=== PATIENT | female | born 1990 | race Two or more races ===

== ENCOUNTER 2024-03-08 21:24 | Inpatient (IN) | payer SELFPAY ==
[2024-03-08 22:31] LABS: Bilirubin Negative (Negative); Blood, Urine 3+ (Negative); CAUTI Indications for Culture Dysuria,urgency,freq; Clarity Clear (Clear); Glucose, Urine (Dipstick) Greater than 1000 mg/dL (Negative); Ketone, Urine 100 mg/dL (Negative); Leukocyte 75 Leu/uL (Negative); Nitrite Negative (Negative); Protein, Urine (Dipstick) Negative (Neg-Trace); Specific Gravity, Urine 1.035 (1.002-1.036); Squamous Epithelial 0-3 HPF (0-3); Urobilinogen Normal mg/dL (Less than 2); pH, Urine 5.5 (5.0-9.0)
[2024-03-08 22:35] LABS: #Basophils 0.05 10x3/uL (0.0-0.2); #Eosinophils Less than 0.03 10x3/uL (0.0-0.7); %Basophils 0.3 % (0.0-1.0); %Eosinophils 0.1 % (0.0-10.0); %Lymphocytes 4.5 % (21.0-51.0); %Neutrophils 92.5 % (42.0-75.0); Actual Bicarbonate (HCO3v) 20.4 mEq/L (22-28); Base Excess -5.8 mEq/L (-2.0 to +3.0); Chloride (VBG) 100 mmol/L (98-106); Hematocrit 40.2 % (36.0-47.0); Hematocrit-VBG 42 % (36.0-47.0); Hemoglobin 13.7 g/dL (12.0-16.0); Hemoglobin (Hb) 14.3 g/dL (11.7-15.5); Mean Corpuscular HGB CONC 34.1 g/dL (32.0-36.0); Mean Corpuscular Hemoglobin 26.4 pg (27.0-31.0); Mean Corpuscular Volume 77.5 fL (78.0-98.0); Mean Platelet Volume 8.9 fL (7.4-10.4); Platelet Count 390 10x3/uL (130-400); Potassium (VBG) 4.53 mmol/L (3.70-5.30); Red Blood Cell (RBC) Count 5.19 mill/uL (4.20-5.40); Sodium 139 mmol/L (133-146); pH (venous) 7.297 (7.32-7.43)
[2024-03-08] MEDS ORDERED: Promethazine HCl 25 MG/ML VIAL ONE (22:38)
[2024-03-08 22:43] LABS: Bacteria/HPF 1+ HPF (None Seen); RBC/HPF 21-50 HPF (0-3)
[2024-03-08] MEDS ORDERED: Ketorolac Tromethamine 30 MG (1 mL) VIAL ONE (22:43)
[2024-03-08 22:46] LABS: Urine Culture Reflex Yes Yes
[2024-03-08] MEDS ORDERED: Droperidol 5 MG/2 ML VIAL ONE (22:52)
[2024-03-08 22:57] LABS: ALT (SGPT) 25 U/L (8-55); AST (SGOT) 16 U/L (5-34); Albumin 4.2 g/dL (3.5-5.0); Alkaline Phosphatase 94 U/L (40-110); Anion Gap 20 mmol/L (10-20); BUN (Urea Nitrogen) 21 mg/dL (7.0-18.7); Bilirubin, Total 1.1 mg/dL (0.2-1.2); Calc. Creatinine Clearance 0 mL/min (70-130); Calcium 9.8 mg/dL (7.8-10.44); Carbon Dioxide 19 mmol/L (22-29); Chloride 104 mmol/L (98-107); Estimated GFR 76; Globulin 3.5 g/dL (2.4-3.5); Glucose 481 mg/dL (70-105); Lipase 9 U/L (8-78); Magnesium 1.9 mg/dL (1.6-2.6); Potassium 4.6 mmol/L (3.5-5.1); Protein, Total 7.7 g/dL (6.0-8.3); Sodium 138 mmol/L (136-145)
[2024-03-08] MEDS ORDERED: Sodium Chloride 0.9% 100 ML ONE (23:03)
[2024-03-08] MEDS ORDERED: cefTRIAXone (ROCEPHIN) 1 GM VIAL ONE (23:03)
[2024-03-08] MEDS ORDERED: INSULIN REGULAR IN 0.9 % NACL 100 ML ONE (23:29)
[2024-03-08] MEDS ORDERED: Insulin Regular, Human 100 UNIT/ML 10 ML VIAL ONE (23:34)
[2024-03-08] MEDS ORDERED: hydrOXYzine 25 MG TAB ONE (23:34)
[2024-03-08] MEDS ORDERED: NS 0.9% w/ 20 MEQ KCL 1,000 ML ONE (23:44)
[2024-03-09] MEDS ORDERED: Dextrose 50% Abboject 50 ML SYRINGE SLOW IVP PRN (00:05)
[2024-03-09] MEDS ORDERED: Sodium Chloride 0.9% 1,000 ML IV PRN ×4 (00:05)
[2024-03-09] MEDS ORDERED: Ondansetron PF 4 MG/2 ML Vial IVP PRN (00:05)
[2024-03-09] MEDS ORDERED: Dextrose 5 %-0.45 % NaCl 1,000 ML IV PRN (00:05)
[2024-03-09] MEDS ORDERED: NS 0.9% w/ 20 MEQ KCL 1,000 ML IV PRN (00:05)
[2024-03-09] MEDS ORDERED: Ibuprofen 200 MG TAB PO PRN (00:05)
[2024-03-09] MEDS ORDERED: Electrolyte Replacement Protocol IVPB SCH (00:05)
[2024-03-09 00:26] LABS: Phosphorus 2.9 mg/dL (2.3-4.7)
[2024-03-09] MEDS: BuPROPion XL 150 MG ER.TAB PO SCH ×2 (01:00→20:41)
[2024-03-09 01:12] LABS: Troponin I Less than 0.010 ng/mL (< 0.028)
[2024-03-09] MEDS: Magnesium 2 GM/50 ML(in water) 2 GM in Premix 1 BAG IVPB SCH (01:12)
[2024-03-09 01:24] LABS: Anion Gap 17 mmol/L (10-20); BUN (Urea Nitrogen) 22 mg/dL (7.0-18.7); Calc. Creatinine Clearance 0 mL/min (70-130); Carbon Dioxide 18 mmol/L (22-29); Chloride 110 mmol/L (98-107); Estimated GFR 86; Glucose 365 mg/dL (70-105); Potassium 4.4 mmol/L (3.5-5.1); Sodium 141 mmol/L (136-145)
[2024-03-09 01:31] VITALS: BMI 35.6
[2024-03-09] MEDS: NS 0.9% w/ 20 MEQ KCL 1,000 ML IV PRN (02:07)
[2024-03-09] MEDS: D5 1/2 NS w/20 mEq KCL 1,000 ML IV PRN (04:02)
[2024-03-09 05:38] LABS: #Basophils Less than 0.03 10x3/uL (0.0-0.2); #Eosinophils Less than 0.03 10x3/uL (0.0-0.7); %Basophils 0.1 % (0.0-1.0); %Lymphocytes 10.2 % (21.0-51.0); %Monocytes 5.5 % (0.0-10.0); %Neutrophils 83.7 % (42.0-75.0); Hematocrit 33.4 % (36.0-47.0); Hemoglobin 11.2 g/dL (12.0-16.0); Mean Corpuscular HGB CONC 33.5 g/dL (32.0-36.0); Mean Corpuscular Hemoglobin 26.2 pg (27.0-31.0); Mean Corpuscular Volume 78.2 fL (78.0-98.0); Mean Platelet Volume 8.6 fL (7.4-10.4); Platelet Count 327 10x3/uL (130-400); RBC Distribution Width 14.4 % (11.5-14.5); Red Blood Cell (RBC) Count 4.27 mill/uL (4.20-5.40)
[2024-03-09 05:49] LABS: Anion Gap 8 mmol/L (10-20); BUN (Urea Nitrogen) 21 mg/dL (7.0-18.7); Calc. Creatinine Clearance 130 mL/min (70-130); Calcium 8.3 mg/dL (7.8-10.44); Carbon Dioxide 20 mmol/L (22-29); Chloride 115 mmol/L (98-107); Estimated GFR 82; Glucose 204 mg/dL (70-105); Potassium 4.1 mmol/L (3.5-5.1); Sodium 139 mmol/L (136-145)
[2024-03-09 08:17] LABS: Anion Gap 11 mmol/L (10-20); BUN (Urea Nitrogen) 20 mg/dL (7.0-18.7); Calc. Creatinine Clearance 126 mL/min (70-130); Calcium 8.3 mg/dL (7.8-10.44); Carbon Dioxide 19 mmol/L (22-29); Chloride 112 mmol/L (98-107); Estimated GFR 79; Glucose 205 mg/dL (70-105); Sodium 138 mmol/L (136-145)
[2024-03-09] MEDS: Pantoprazole 40 MG VIAL IVP SCH (09:23)
[2024-03-09 10:20] LABS: BHCG - Serum Negative (NEGATIVE); Pregs Control Background? CLEAR/WHITE (CLR/WHITE); Pregs Control Bar Appear? YES (CONTROL BAR)
[2024-03-09] MEDS ORDERED: Glucagon 1 MG/ML KIT IM PRN (10:50)
[2024-03-09] MEDS ORDERED: Dextrose 5% in Water 1,000 ML IV PRN (10:50)
[2024-03-09 10:55] LABS: Anion Gap 11 mmol/L (10-20); BUN (Urea Nitrogen) 19 mg/dL (7.0-18.7); Calc. Creatinine Clearance 185 mL/min (70-130); Carbon Dioxide 21 mmol/L (22-29); Chloride 113 mmol/L (98-107); Estimated GFR 119; Glucose 132 mg/dL (70-105); Potassium 3.9 mmol/L (3.5-5.1); Sodium 141 mmol/L (136-145)
[2024-03-09] MEDS: INSULIN REGULAR IN 0.9 % NACL 100 ML IVPB SCH (12:21)
[2024-03-09] MEDS: Insulin Glargine 30 UNITS/0.3 ML VIAL SC SCH (14:30)
[2024-03-09] MEDS: cefTRIAXone\\ROCEPHIN 2 GM in Sodium Chloride 0.9% 100 ML IVPB SCH (14:30)
[2024-03-09] MEDS: Lactated Ringer's 1,000 ML IV SCH ×2 (14:30→18:23)
[2024-03-09] MEDS: Insulin Lispro 100 UNIT/ML 10 ML VIAL SC PRN (17:07)
[2024-03-09] MEDS: Acetaminophen 325 MG TAB PO PRN (17:08)
[2024-03-09] MEDS: hydrOXYzine 25 MG TAB PO PRN (20:41)
[2024-03-09] MEDS ORDERED: Insulin Glargine 30 UNITS/0.3 ML VIAL SC SCH ×3 (21:00)
[2024-03-10 05:25] LABS: #Basophils 0.04 10x3/uL (0.0-0.2); %Basophils 0.5 % (0.0-1.0); %Eosinophils 1.2 % (0.0-10.0); %Lymphocytes 34.7 % (21.0-51.0); %Monocytes 5.7 % (0.0-10.0); %Neutrophils 57.5 % (42.0-75.0); Hematocrit 33.5 % (36.0-47.0); Hemoglobin 11.4 g/dL (12.0-16.0); Mean Corpuscular Hemoglobin 26.8 pg (27.0-31.0); Mean Corpuscular Volume 78.8 fL (78.0-98.0); Mean Platelet Volume 8.6 fL (7.4-10.4); Platelet Count 310 10x3/uL (130-400); RBC Distribution Width 14.4 % (11.5-14.5); Red Blood Cell (RBC) Count 4.25 mill/uL (4.20-5.40)
[2024-03-10 05:41] LABS: Anion Gap 10 mmol/L (10-20); BUN (Urea Nitrogen) 8 mg/dL (7.0-18.7); Calc. Creatinine Clearance 177 mL/min (70-130); Carbon Dioxide 23 mmol/L (22-29); Chloride 110 mmol/L (98-107); Estimated GFR 118; Glucose 74 mg/dL (70-105); Potassium 3.8 mmol/L (3.5-5.1); Sodium 139 mmol/L (136-145)
[2024-03-10 08:07] VITALS: TEMP 98.6
[2024-03-10] MEDS ORDERED: Insulin Glargine 30 UNITS/0.3 ML VIAL SC SCH (09:00)
[2024-03-10] MEDS: cefTRIAXone\\ROCEPHIN 2 GM in Sodium Chloride 0.9% 100 ML IVPB SCH (10:00)
[2024-03-12] MEDS ORDERED: FLU (Fluarix Triv) TS24-25(6MOS UP)/PF 45 MCG/0.5 ML Syringe IM ONE (09:00)
== END 2024-03-10 11:45 | disposition home or self-care (01) | DRG 638 ==
LOC: ERS 21:24 → IMCU/EMU 23:56
PROVIDERS: ADMIT Emergency Medicine; ATTEND Emergency Medicine
DX: E10.10 Type 1 diabetes mellitus with ketoacidosis without coma (principal); N39.0 Urinary tract infection, site not specified; E66.9 Obesity, unspecified; F41.0 Panic disorder [episodic paroxysmal anxiety]; Z79.899 Other long term (current) drug therapy; Z68.35 Body mass index [BMI] 35.0-35.9, adult
CPT/HCPCS: 36415; 36416; 80048; 80053; 81001; 82010; 82805; 83605; 83690; 83735; 84100; 84484; 84703; 85025; 87040; 87086; 93005; 94760; 96374; 96375; J0696; J1790; J1815; J1885; J2470; J2550; J3475; J3480; J7120